=== PATIENT | male | born 1990 | race Caucasian/White ===

== ENCOUNTER 2021-11-20 13:28 | Outpatient (CLI) | payer OTHER, SELFPAY ==
[2021-11-20 21:48] LABS: Albumin* 4.7 g/dL (3.3-5.0)
[2021-11-20 21:51] LABS: Alanine Aminotransferase* 52 U/L (4-50); Alkaline Phosphatase* 88 U/L (40-150); Aspartate Amino Transferase* 38 U/L (12-35); Bilirubin Direct* 0.4 mg/dL (0.0-0.5); Bilirubin Total* 0.6 mg/dL (0.1-1.5); Total Protein* 7.1 g/dL (6.0-8.3)
== END 2021-11-20 13:29 | disposition home or self-care (01) ==
LOC: FRMREF 13:29
PROVIDERS: Visit Provider Dermatology
DX: L40.9 Psoriasis, unspecified (principal); Z92.21 Personal history of antineoplastic chemotherapy
CPT/HCPCS: 80076